=== PATIENT | female | born 1980 | race Caucasian/White ===

== ENCOUNTER 2020-07-31 15:53 | Outpatient (REF) | payer OTHER, SELFPAY ==
--- NOTE | 2020-07-31 14:20 | PAPFT_PTH ---
PATIENT: Kirsten Vivar LOC: [facility] U#:[id number] AGE/SX: 40/F ROOM: RE07/31/[address]: ZAINAB Noel : 1980 BED: DIS: 07/31/2020 SPEC #: [id number] RECD: 07/31/20 17:40 STATUS: YULIYA RERiver #: [id number] ANDER: 07/31/20 14:[address]: Ivone Mclean DEPT: [facility] Cytology RECD BY: Gail Chapin Tissues: 1 - CX/ENDOCX FOR PAP SMEARS Procedures: PAP THIN PREP/UVM Screening HPV DNA PROBE Comments: [id number]
== END 2020-07-31 15:54 | disposition home or self-care (01) ==
LOC: LBN 15:53
PROVIDERS: Visit Provider Nurse Practitioner Family
DX: Z12.4 Encounter for screening for malignant neoplasm of cervix (principal); Z11.51 Encounter for screening for human papillomavirus (HPV)
CPT/HCPCS: 88142; 87624

== ENCOUNTER 2020-08-14 02:28 | Outpatient (CLI) | payer OTHER, SELFPAY ==
--- NOTE | 2020-08-14 14:58 | DI.MAMMO_ITS ---
Exam(s) MAMMO SCREENING EXAM: MAMMO SCREENING CLINICAL HISTORY: screening TECHNIQUE: Mammograms were interpreted according to the usual protocol including computer analysis w [employer] CAD system, tomosynthesis and C-view imaging. COMPARISON: FINDINGS: The breasts are heterogeneously dense. No dominant mass or clumped microcalcification is identified in either breast. The current examination is a baseline examination IMPRESSION: No specific evidence of malignancy at this time. Routine screening examinations are suggested at ye edgar intervals due to the family history of breast carcinoma. BI-RADS Category 1 - Negative Breast Density - Category C - Heterogeneously dense
== END 2020-08-14 02:48 ==
PROVIDERS: Visit Provider Nurse Practitioner Family
DX: Z12.31 Encounter for screening mammogram for malignant neoplasm of breast (principal); Z80.3 Family history of malignant neoplasm of breast
CPT/HCPCS: 77063; 77067

== ENCOUNTER 2021-08-19 16:33 | Outpatient (REF) | payer OTHER, SELFPAY ==
[2021-08-20 15:04] LABS: COVID-19 RT-PCR UVMMC Result Negative (Negative)
== END 2021-08-19 16:34 | disposition home or self-care (01) ==
LOC: LBN 16:33
PROVIDERS: Visit Provider Nurse Practitioner Family
DX: Z20.822 Contact with and (suspected) exposure to COVID-19 (principal); J32.9 Chronic sinusitis, unspecified
CPT/HCPCS: U0003

== ENCOUNTER 2022-01-02 14:36 | Outpatient (REF) | payer OTHER, SELFPAY ==
[2022-01-02 19:33] LABS: ALT 21 U/L (14-59); AST 17 U/L (15-37); Albumin 3.9 g/dL (3.4-5.0); Alkaline Phosphatase 59 U/L (46-116); Anion Gap 8.1 mmol/L (3-11); BUN 13 mg/dL (7-18); Bilirubin, Total 0.4 mg/dL (0.2-1.0); CO2 28.9 mmol/L (21.0-32.0); CREATININE 0.7 mg/dL (0.55-1.02); Calcium 9.6 mg/dL (8.5-10.1); Calculated LDL 139 mg/dL (<100); Chloride 101 mmol/L (98-107); Cholesterol 215 mg/dL (<200); Estimated GFR 110.67 (mL/min/1.73m2); Glucose 90 mg/dL (74-106); HDL Cholesterol 68 mg/dL (40-60); Potassium 4.4 mmol/L (3.5-5.1); Sodium 138 mmol/L (136-145); Total Protein 7.7 g/dL (6.4-8.2); Triglyceride 44 mg/dL (<150)
== END 2022-01-02 14:37 | disposition home or self-care (01) ==
LOC: LBN 14:36
PROVIDERS: Visit Provider Nurse Practitioner Family
DX: Z00.00 Encounter for general adult medical examination without abnormal findings (principal); Z13.220 Encounter for screening for lipoid disorders
CPT/HCPCS: 80053; 80061

== ENCOUNTER → 2022-01-20 01:45 | Outpatient (CLI) | payer OTHER, SELFPAY ==
--- NOTE | 2022-01-20 09:51 | DI.MAMMO_ITS ---
Exam(s) MAMMO SCREENING EXAM: MAMMO SCREENING CLINICAL HISTORY: screening,Z12.39 TECHNIQUE: Mammograms were interpreted according to the usual protocol including computer analysis w [employer] CAD system, tomosynthesis and C-view imaging. COMPARISON: FINDINGS: The breasts are heterogeneously dense. No dominant mass or clumped microcalcification is identified in either breast. The current examination is compared with previous examination of August 2020 and ther e has been no gross interval change in appearance in comparison with the prior study. IMPRESSION: No specific evidence of malignancy at this time. Routine screening examinations are suggested at yea rly intervals due to the family history of breast carcinoma. BI-RADS Category 1 - Negative Breast Density - Category C - Heterogeneously dense
== END ==
PROVIDERS: Visit Provider Nurse Practitioner Family
DX: Z12.31 Encounter for screening mammogram for malignant neoplasm of breast (principal); R92.8 Other abnormal and inconclusive findings on diagnostic imaging of breast
CPT/HCPCS: 77063; 77067

== ENCOUNTER 2023-01-03 11:44 | Outpatient (REF) | payer OTHER, SELFPAY ==
--- NOTE | 2023-01-03 10:00 | SKI_PTH ---
PATIENT: Kirsten Vivar LOC: [facility] U#:[id number] AGE/SX: 42/F ROOM: RE01/03/[address]: Baldev Royal DNP : 1980 BED: DIS: 01/03/2023 SPEC #: [id number] RECD: 01/03/23 13:05 STATUS: YULIYA FAIR #: [id number] ANDER: 01/03/23 10:[address]: Baldev Grimes DEPT: Surgical Specimen RECD BY: Gail Chapin Tissues: 1 - SKIN BIOPSY(SHAVE/PUNCH) 2 - SKIN BIOPSY(SHAVE/PUNCH) 3 - SKIN BIOPSY(SHAVE/PUNCH) 4 - SKIN BIOPSY(SHAVE/PUNCH) Procedures: SKIN LEVEL 4 Comments: [id number]
== END 2023-01-03 11:45 | disposition home or self-care (01) ==
LOC: LBN 11:44
PROVIDERS: PCP Nurse Practitioner Family; Visit Provider Nurse Practitioner Family
DX: M75.91 Shoulder lesion, unspecified, right shoulder (principal)
CPT/HCPCS: 88305

== ENCOUNTER → 2023-01-06 03:14 | Outpatient (CLI) | payer OTHER, SELFPAY ==
--- NOTE | 2023-01-06 07:15 | DI.RAD_ITS ---
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 TECHNIQUE: 2D digital imaging was performed. COMPARISON: No exams were available for comparison FINDINGS: Five views. Evidence of fracture or dislocation or abnormal soft tissue calcifications. Subacromial space is not diminished. No degenerative changes evident in the glenohumeral and AC joints. No os acromiale. C oracoid process is intact. Clavicle intact. IMPRESSION: No significant osseous findings in the right shoulder. DATA REPOSITORY: RADIATION DOSE DELIVERED:
== END ==
PROVIDERS: PCP Nurse Practitioner Family; Visit Provider Nurse Practitioner Family
DX: M25.511 Pain in right shoulder (principal)
CPT/HCPCS: 73030

== ENCOUNTER → 2023-01-24 03:38 | Outpatient (CLI) | payer OTHER, SELFPAY ==
--- NOTE | 2023-01-24 09:15 | DI.MAMMO_ITS ---
Exam(s) MAMMO SCREENING EXAM: MAMMO SCREENING CLINICAL HISTORY: screening TECHNIQUE: Bilateral full field digital CC and MLO mammographic images were obtained with 3D tomosyn thesis and utilizing computer aided detection (CAD). COMPARISON: Available for comparison. FINDINGS: Masses/Architectural Distortion: There is increase in size of a nodule in the medial left breast on t he CC view which now measures 6 mm. It lies 7 cm from the nipple. No areas of architectural distort ion are seen. Microcalcifications: No suspicious pleomorphic-type are seen. Skin Thickening/Nipple Retraction: None. IMPRESSION: 1. Interval increase in size of left breast nodule. 2. Further evaluation with a spot compression view and a limited right breast ultrasound are requeste d. BI-RADS Category 0 - Assessment Incomplete: Need additional imaging evaluation Breast Density - Category C - Heterogeneously dense Breast density category C or D implies that the patient has dense breast tissue. Dense breast tissue is very common and is not abnormal but dense breast tissue can make it harder to find cancer on a ma mmogram. Also, dense breast tissue may increase their breast cancer risk. This information about the result of the mammogram report was provided to the patient to raise their awareness. Use this report when you speak with the patient about their risks for breast cancer, which includes their family hist ory. At that time, you may recommend for more screening tests (Ultrasound or MRI) as they might be us eful based on their risk. A negative radiographic report should not delay biopsy if a dominant or clinically suspicious mass is present. Up to ten percent of cancers are not identified on mammography. A negative report may reinforce clinical impression. Adenosis and dense breasts may obscure an underlying neoplasm. False positive reports average 6 to 10%. Patient will receive a letter notifying them of these results.
== END ==
PROVIDERS: PCP Nurse Practitioner Family; Visit Provider Nurse Practitioner Women's Health
DX: Z12.31 Encounter for screening mammogram for malignant neoplasm of breast (principal)
CPT/HCPCS: 77063; 77067

== ENCOUNTER → 2023-02-03 02:51 | Outpatient (CLI) | payer OTHER, SELFPAY ==
--- NOTE | 2023-02-03 09:22 | DI.MAMMO_ITS ---
Exam(s) MG MAMMO SCREEN CALL BACK UNI US BREAST RT LIMITED EXAM: MG MAMMO SCREEN CALL BACK UNI CLINICAL HISTORY: F/U MAMMO, R92.8,INTERVAL INCREASE SIZE RT BREAST NODULE. TECHNIQUE: Craniocaudal and mediolateral oblique spot compression digital Mammography views of the b reast with Tomosynthesis and breast ultrasound. COMPARISON: MG MG MAMMO SCREENING from 08/14/2020 MG MG MAMMO SCREENING from 01/20/2022 MG MG MAMMO SCREENING from 01/24/2023 US US BREAST RT LIMITED from 02/03/2023 FINDINGS: Mammography/Tomosynthesis: Masses/Architectural Distortion: Circumscribed nodule medial right breast measuring 3 x 4 millimeters . On the screening exam there was some overlap with an adjacent vessel making it appear larger. Microcalcifictions: No suspicious pleomorphic-type are seen. Skin Thickening/Nipple Retraction: None. Right breast US: Echotexture: Normal appearance of the glandular tissue. Shadowing: No suspicious foci. Cyst: 3 millimeter cyst 4 o'clock position of the medial breast. Solid lesions: None seen. Ductal dilation: None. IMPRESSION: 1. No evidence of malignancy is noted. 2. Unless there is more urgent need, follow-up screening mammography is recommended, as per [place] [employer] guidelines. 3. The findings were discussed with the patient on the date of the examination. BI-RADS Category 2 - Benign Findings Breast Density - Category C - Heterogeneously dense A mammogram that demonstrates density of C or D indicates the patient's breast tissue is dense. Dense breast tissue is very common and is not abnormal, but dense breast tissue can make it harder to find cancer on a mammogram. Also, dense breast tissue may increase their breast cancer risk. This informa tion about the result of the mammogram report was provided to the patient to raise their awareness. U se this report when you speak with the patient about their risks for breast cancer, which includes th eir family history. At that time, you may recommend for more screening tests (Ultrasound or MRI) as t hey might be useful based on their risk. A negative radiographic report should not delay biopsy if a dominant or clinically suspicious mass is present. Up to ten percent of cancers are not identified on mammography. A negative report may reinforce clinical impression. Adenosis and dense breasts may obscure an underlying neoplasm. False positive reports average 6 to 10%. Patient will receive a letter notifying them of these results.
== END ==
PROVIDERS: PCP Nurse Practitioner Family; Visit Provider Nurse Practitioner Women's Health
DX: Z12.31 Encounter for screening mammogram for malignant neoplasm of breast (principal); R92.8 Other abnormal and inconclusive findings on diagnostic imaging of breast
CPT/HCPCS: 76642; 77063; 77067

== ENCOUNTER 2023-09-19 11:45 | Outpatient (REF) | payer OTHER, SELFPAY ==
--- NOTE | 2023-09-19 09:30 | PAPFT_PTH ---
PATIENT: Kirsten Vivar LOC: [facility] U#:[id number] AGE/SX: 43/F ROOM: RE09/19/[address]: Rae August NP : 1980 BED: DIS: 09/19/2023 SPEC #: [id number] RECD: 09/19/23 13:14 STATUS: YULIYA RERiver #: [id number] ANDER: 09/19/23 09:[address]: Mariangel LEBLANC,Rae DEPT: [facility] Cytology RECD BY: Gail Chapin ENTERED: 09/19/23 13:14 SP TYPE: PAPFT OTHR DR: Baldev Royal DNP Tissues: 1 - CX/ENDOCX FOR PAP SMEARS Procedures: PAP THIN PREP/UVM Screening HPV DNA PROBE Comments: [id number]
== END 2023-09-19 11:46 | disposition home or self-care (01) ==
LOC: LBN 11:45
PROVIDERS: PCP Nurse Practitioner Family; Visit Provider Nurse Practitioner Women's Health
DX: N76.0 Acute vaginitis (principal); Z12.4 Encounter for screening for malignant neoplasm of cervix; Z30.41 Encounter for surveillance of contraceptive pills; N81.11 Cystocele, midline; B37.9 Candidiasis, unspecified; B96.89 Other specified bacterial agents as the cause of diseases classified elsewhere
CPT/HCPCS: 88142; 87480; 87510; 87624; 87660

== ENCOUNTER 2024-02-06 01:24 | Outpatient (CLI) | payer OTHER, SELFPAY ==
--- NOTE | 2024-02-06 09:15 | DI.MAMMO_ITS ---
Exam(s) MAMMO SCREENING EXAM: MAMMO SCREENING CLINICAL HISTORY: screening TECHNIQUE: Mammograms were interpreted according to the usual protocol including computer analysis w [employer] CAD system, tomosynthesis and C-view imaging. COMPARISON: 2020 through 2022 FINDINGS: The breasts are composed of heterogeneously dense fibroglandular densities, Breast Density category C . No suspicious masses or suspicious microcalcifications are seen. No skin thickening or abnormal axillary lymph nodes are seen. There has been no significant change from prior exams. IMPRESSION: BI-RADS Category 1, Negative mammogram. Yearly screening mammography is recommended. Breast Density Category C, heterogeneously Dense. The mammogram demonstrates the patient's breast tissue is dense. Dense breast tissue is very common a nd is not abnormal but dense breast tissue can make it harder to find cancer on a mammogram. Also, de nse breast tissue may increase breast cancer risk. This information about the result of the mammogram report was provided to the patient to raise their awareness. Use this report when you speak with the patient about their risks for breast cancer, which includes their family history. At that time, you may recommend additional screening tests (Ultrasound or MRI) as they might be useful based on their r isk. A negative radiographic report should not delay biopsy if a dominant or clinically suspicious mass is present. Up to ten percent of cancers are not identified on mammography. A negative report may reinforce clinical impression. Adenosis and dense breasts may obscure an underlying neoplasm. False positive reports average 6 to 10%.
== END 2024-02-06 01:44 ==
LOC: DI 01:24
PROVIDERS: PCP Nurse Practitioner Family; Visit Provider Nurse Practitioner Women's Health
DX: Z12.31 Encounter for screening mammogram for malignant neoplasm of breast (principal)
CPT/HCPCS: 77063; 77067

== ENCOUNTER 2024-03-26 06:09 | Day surgery (SDC) | payer OTHER, SELFPAY ==
--- NOTE | 2024-03-25 12:15 | W.PREOPHP ---
Assessment and Plan Assessment and plan (1) Encounter for screening colonoscopy: Status: Acute Assessment and plan: We reviewed the plan for her [facility] screening colonscpoy today. Kirsten had the chance to ask any other questions. We can proceed with colonoscopy as planned. History of Present Illness History of Present Illness Chief Complaint: screening colonoscopy Narrative: 44-year-old woman has no symptoms of concern. She has never had a screening colonoscopy before. There is no family history of colon cancer. She has never had intra-abdominal surgery. She does thing that her parents might have had adenomatous polyps. Since her last office visit, there have been no significant changes to the the history [facility], [facility] All Active Problems Encounter for screening colonoscopy (Acute) Prolapse of female pelvic organs (Acute) Right shoulder pain (Acute) Skin lesions, generalized (Acute) Varicose vein of leg (Acute) Annual physical exam (Acute) Screening cholesterol level (Acute) Contraception (Acute) Medical History Hypertension Family History Father Heart disease Hypertension Brother Hypertension Mother Hypertension Depression Sister Thyroid disorder Brother High cholesterol Son No problems noted. Daughter No problems noted. 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 Pets and animals: Yes Pets and animals: dog(s) Sexually active: Yes Do you think of yourself as: straight/heterosexual Current gender identity: female What is your relationship status?: How often do you talk on the phone with friends or family?: twice per week How often do you get together with friends or relatives?: once per week How often do you attend yazdanism or buddhist services?: 1-3 times per year Do you belong to any clubs or organized social groups?: no Panel score (0-1 are the most socially isolated patients): 2 What type of physical activity do you participate in: walking Duration: 15-30 minutes/day Frequency: 3-4 times per week Tresa/Taoist: Sikhism Special tresa needs: No Seatbelt use: always Helmet use: Yes Helmet use: always Drive intox or ride w/intox passenger coach driver: No Do you feel safe at home: Yes Do you feel safe in your relationship?: Yes Female Reproductive History Menstrual control method: pills (POP) History History Para 2 Hx # Term Pregnancies Multiple births Hx # Pregnancies Ectopic pregnancies AB induced Hx Number of Living Children AB spontaneous Meds Allergies and Home Medications Allergies Allergy/AdvReac Type Severity Reaction Status Date / Time No Known Allergies Allergy Verified 03/26/24 06:34 Home Medications ?Medication ?Instructions ?Recorded ?Confirmed ?Type wpghzksv-tgt-mgdy-FA-Ca carb-vit K 1 tab PO DAILY 04/28/20 03/26/24 History 18 mg iron-400 mcg-500 mg tablet (One-A-Day Womens Formula) norethindrone (contraceptive) 0.35 0.35 mg PO DAILY #84 tabs 06/20/23 03/26/24 Rx mg tablet albuterol sulfate 90 mcg/actuation 2 puff inhalation Q6H PRN 02/28/24 03/26/24 Rx aerosol inhaler shortness of breath or wheezing #6.7 grams Exam Const General: cooperative, healthy appearing and not in acute distress Neck Neck: normal visual inspection, no lymphadenopathy and supple Resp Effort & Inspection: normal respiratory effort Auscultation: clear to auscultation bilaterally Cardio Jugular venous pressure: no JVD Rate: regular rate Rhythm: regular rhythm Heart Sounds: S1 normal and S2 normal GI Inspection: normal to inspection Palpation: soft, no guarding, no hernias and nontender Percussion: normal to percussion Auscultation: normal bowel sounds Neuro General: patient alert, patient awake and patient oriented x3 Psych Appearance: grossly normal
--- NOTE | 2024-03-25 12:17 | W.PM.DSUDISC ---
Date of service: 03/26/24 Discharge Plan Disposition Patient Disposition: Home Condition: Good Discharge Details Reason For Visit: screening colonoscopy Attending Provider: Mookie Pitt Primary Care Provider: Baldev Grimes Home Meds and New Rx's Prescriptions: Continued One-A-Day Womens Formula 18 mg iron-400 mcg-500 mg tablet 1 tab PO DAILY Rx Instructions: give with meal/snack albuterol sulfate 90 mcg/actuation HFA aerosol inhaler 2 puff inhalation Q6H PRN (Reason: shortness of breath or wheezing) Qty: 6.7 0RF norethindrone (contraceptive) 0.35 mg tablet 0.35 mg PO DAILY Qty: 84 3RF Rx Instructions: start day 1 of menstrual cycle Discontinued bisacodyl [Dulcolax (bisacodyl)] 5 mg tablet,delayed release (DR/EC) 5 mg PO ONCE Qty: 4 0RF Rx Instructions: Take per colonoscopy instructions provided by ordering providers office polyethylene glycol 3350 17 gram/dose powder 17 g PO ONCE Qty: 238 0RF Rx Instructions: Take per colonoscopy instructions provided by ordering providers office Discharge Instructions Instructions: Colon polyps Additional Instructions: Antoinette, was pleasure meeting you today, and I hope you are comfortable throughout the procedure. I did find and removed, what I think might be a small polyp today. This is extremely small, and certainly nothing to be worried about. I will send this off to the pathologist for their review. If it is a true polyp, we will use that information to guide the timing of your next colonoscopy. Those results usually take a week or 2, but as soon as I have that information, my office will be in touch. If you need anything in the meantime, please do not hesitate to ask. 1. If tolerated, consume a soft, low fiber diet for 1-2 days. 2. Do not drive, drink alcohol, operate machinery, make critical decisions, or do activities that require coordination or balance for 24 hours. 3. Because air was put into your colon during the procedure, expelling air from your rectum (passing gas or farting) is normal. 4. You may not have a bowel movement for 1-3 days because of the colonoscopy prep. This is normal. 5. Go directly to the emergency room if you notice any of the following: Develop chills (warm to touch), or if you have a thermometer and your temperature is above 101 Difficulty breathing or difficultly swallowing Persistent vomiting Severe abdominal pain, other than gas cramps Severe chest pain Black, tarry stools Any bleeding ? exceeding one tablespoon 6. Call your physician if the site where your intravenous was started becomes red, swollen, painful, and warm to touch. 7. Your physician has reviewed your pre-procedure medications. Please continue to take those medications as previously ordered. You will be given specific information/education regarding any changes to your medications before leaving. Activity:: Activity as Tolerated Diet:: As Tolerated Discharge Orders Discharge Orders: Discharge Order (Routine); Ordered 03/25/24 Ordered By: Mookie Pitt DS: Diagnosis Discharge Diagnosis (1) Encounter for screening colonoscopy: Status: Acute Asessment and Plan: Follow-up on polypectomy results
--- NOTE | 2024-03-25 12:18 | COLE_ITS ---
Date of service: 03/26/24 Time of Service: 07:55 Colonoscopy Report Date of procedure: 03/26/24 Pre-op diagnosis general: screening colonoscopy Post-op diagnosis procedure note: other (Colon polyp) Procedure: colonoscopy with polypectomy Surgeon: Mookie Pitt Anesthesia Type: General:No Airway Estimated blood loss (mL): 5 Pathology: other (0.25 cm flat polyp at 25 cm) Complications: None Disposition: same day Indications: Kirsten is a 44 year old woman who needs her first screening colonoscopy Prep: Miralax/Dulcolax Procedure Start Time: 07:36 Procedure End Time: 07:51 Retraction Time: 7 Findings: 0.25 cm flat polyp at 25 cm Procedure Description: After the induction of anesthesia, and with the patient in left lateral decubitus position, I began by performing an external anorectal exam.? Perineum and skin were normal, as was the anal verge.? There was no evidence of external hemorrhoids.? Next, I performed a digital rectal exam.? I did not appreciate any abnormal findings.? Next, I advanced a colonoscope into the rectal vault.? I performed retroflexion.? This appeared normal.? Using insufflation, I then advanced the colonoscope beyond the rectal folds and into the sigmoid colon before advancing towards the cecum.? The quality of the prep was outstanding.? The scope was noted to be in the cecum by identification of the ileocecal valve and appendiceal orifice.? I then began withdrawing the colonoscope using re peated irrigation as necessary for full evaluation of the colonic mucosa. Around 25 cm from the anal verge was a very small area of polypoid tissue. It was less than 0.25 cm in size. This was flat, and I removed it with cold forceps with minimal bleeding. ?Once the scope was withdrawn to the level of the rectum, great care was taken to examine portions of the rectal folds.? Finally, the scope was withdrawn and the patient was brought to the same-day surgery recovery unit as the anesthetic wore off. ?The findings and instructions were shared with the patient prior to discharge. [place] Bowel Prep [place] Bowel Prep Right Colon: 3 Left Colon: 3 Transverse Colon: 3 Total Score: 9
--- NOTE | 2024-03-25 17:08 | ANES.PREOP_ITS ---
General Info Date of Service Date Performed: 03/26/24 Height: 5 ft 8 in Weight: 131.542 kg Body Mass Index (BMI): 44.1 Surgical Procedure: Operation Date: 03/26/24 07:35 Proposed Procedure Side Surgeon p Colonoscopy Mookie Pitt MD Meds Allergies and Home Medications Allergies Allergy/AdvReac Type Severity Reaction Status Date / Time No Known Allergies Allergy Verified 03/26/24 06:34 Home Medication ?Medication ?Instructions ?Recorded msmyxsot-jwk-iadu-FA-Ca carb-vit K 1 tab PO DAILY 04/28/20 18 mg iron-400 mcg-500 mg tablet (One-A-Day Womens Formula) norethindrone (contraceptive) 0.35 0.35 mg PO DAILY #84 tabs 06/20/23 mg tablet albuterol sulfate 90 mcg/actuation 2 puff inhalation Q6H PRN 02/28/24 aerosol inhaler shortness of breath or wheezing #6.7 grams Current Visit Medications: Current Medications Generic Name Dose Route Start Last Admin Trade Name Alfonsoq PRN Reason Stop Dose Admin Ringer's Solution 1,000 mls @ 80 mls/hr 03/26/24 06:00 IV 03/26/24 23:59 INFUSION WAGNER IV Miscellaneous Supplies 1 each 03/26/24 06:00 Iv Access IV 03/26/24 23:59 DIRECTED WAGNER Ondansetron HCl 4 mg 03/25/24 12:20 Ondansetron 4 Mg/2 Ml Vial IVP 04/24/24 12:19 Q4H PRN PRN Nausea / Vomiting Sodium Chloride 0 ml 03/26/24 06:00 Normal Saline Flush 10 Ml Syr IV 03/26/24 23:59 PRN PRN Sodium Chloride 0 ml 03/26/24 06:00 Normal Saline 10 Ml Vial IJ 03/26/24 23:59 DIRECTED PRN Sterile Water 0 ml 03/26/24 06:00 Water,Injection,Sterile 10 Ml Vial IJ 03/26/24 23:59 DIRECTED PRN PFSH Active Problems Active Problems: Problem Status Onset Code Encounter for screening colonoscopy Acute Z12.11 Prolapse of female pelvic organs Acute N81.9 Right shoulder pain Acute M25.511 Skin lesions, generalized Acute L98.9 Varicose vein of leg Acute I83.90 Annual physical exam Acute Z00.00 Screening cholesterol level Acute Z13.220 Contraception Acute Z30.9 Medical History Medical History Hypertension Tobacco Smoking/Tobacco Use Status: Never Passive smoking exposure: No Second hand exposure: No Alcohol Alcohol Intake: never Substance Use Substance use: Never Substance use type: does not use Prental History History Para 2 Hx # Term Pregnancies Multiple births Hx # Pregnancies Ectopic pregnancies AB induced Hx Number of Living Children AB spontaneous Vital Signs and Lab Results Vital Signs Most Recent Vital Signs in EMR: Temp Pulse Resp BP Pulse Ox 36.6 C 99 H 16 139/74 100 03/26/24 06:35 03/26/24 06:35 03/26/24 06:35 03/26/24 06:35 03/26/24 06:35 Lab Results Blood Type / Crossmatch: No Data to Display Complete Blood Count: No Data to Display Complete Metabolic Panel: No Data to Display Liver Function Panel: No Data to Display Coagulation Panel: No Data to Display Cardiac Panel: No Data to Display Arterial Blood Gas: No Data to Display Venous Blood Gas: No Data to Display Pancreas Panel: No Data to Display Thyroid Panel: No Data to Display Infectious Disease: No Data to Display Blood Cultures: No Data to Display Toxicology Panel: No Data to Display Panel: No Data to Display Anesthesia Assessment and Plan Anesthesia History Personal History: No History of General Anesthesia Family History: No Family History of Anesthesia Complications Exercise Tolerance Exercise Tolerance: Metabolic Equivalents>4 Cardiac & Pulmonary Exam Cardiac Exam: Normal S1/S2 Heart Sounds Pulmonary Exam: Clear Bilateral Breath Sounds Implantable Cardiac Device Does patient have a Pacemaker or an ICD?: No Airway Exam Known Difficult Airway: No Mallampati Class: 3 Mouth Opening: Narrow (< 3cm) Thyromental Distance: Less than 3 cm Neck Range of Motion: Full ROM Neck Circumference: Normal Teeth Condition: Normal Dentition ASA Classification ASA Score: ASA 3 Emergency Case?: No NPO Status NPO Status: NPO Clears >2 hours, Solids >8 hours Status Status: Negative HCG Anesthesia Plan Resuscitation Status: Full Code Anesthesia Technique: General Anesthesia Airway Planned: Natural Airway Monitors Used: Standard Monitors Preoperative Comments:: 44 yo female for colo. Sig PMHx: HTN (no meds, on list since preg), RAD (albuterol for URI a month ago ), never smoker, denies major.
[2024-03-26 06:35] VITALS: BP 139/74; PULSE 99; RESP 16; TEMP 36.6; O2SAT 100
[2024-03-26] MEDS: Normal Saline Flush 10 ML SYR IV (06:42)
[2024-03-26 07:00] VITALS: BMI 44.1
--- NOTE | 2024-03-26 07:50 | BOWEL_PTH ---
PATIENT: Kirsten Vivar LOC: [facility] U#:[id number] AGE/SX: 44/F ROOM: RE03/26/[address]: Mookie Pitt MD : 1980 BED: DIS: 03/26/2024 SPEC #: [id number] RECD: 03/26/24 12:40 STATUS: YULIYA REQ #: [id number] ANDER: 03/26/24 07:[address]: Mookie Pitt DEPT: Surgical Specimen RECD BY: Gail Chapin ENTERED: 03/26/24 12:42 SP TYPE: Bowel OTHR DR: Baldev Royal DNP Tissues: 1 - BIOPSY BOWEL Procedures: GROSS AND MICRO LEVEL 4 Comments: [id number]
[2024-03-26 07:55] VITALS: BP 116/76; PULSE 83; RESP 16; TEMP 36.6; O2SAT 100
--- NOTE | 2024-03-26 08:02 | W.ANESPOSTOP ---
Postoperative Evaluation Date, Time and Location Date Performed: 03/26/24 Time Performed: 08:02 Patient Location: Day Surgery Unit Vital Signs Most Recent Imported Vital Signs: Most Recent Vital Signs Temp Pulse Resp BP Pulse Ox 36.6 C 83 16 116/76 100 03/26/24 07:55 03/26/24 07:55 03/26/24 07:55 03/26/24 07:55 03/26/24 07:55 Pain Score Most Recent Pain Score: Most Recent Pain Score Pain Level 0 03/26/24 07:55 Assessment Mental Status: Awake (Alert & Oriented to Patient Baseline) Airway and Respiratory Function: Patent airway with normal (patient baseline) respiratory exam Cardiovascular Function: Hemodynamically Stable Hydration Status: Adequately Hydrated Nausea & Vomiting: No Nausea or Vomiting Pain: Pt. Denies Any Pain Peripheral Nerve Block: Patient did not receive a nerve block
[2024-03-26 08:26] VITALS: BP 121/75; PULSE 80; RESP 16; TEMP 36.3; O2SAT 100
== END 2024-03-26 09:09 | disposition home or self-care (01) ==
LOC: SUR 06:09
PROVIDERS: PCP Nurse Practitioner Family; Visit Provider Surgery
PROC: 0DJD8ZZ Inspection of Lower Intestinal Tract, Via Natural or Artificial Opening Endoscopic (ICD-10-PCS; CPT 45378; principal; 2024-03-26 07:30)
DX: Z12.11 Encounter for screening for malignant neoplasm of colon (principal); K63.5 Polyp of colon
CPT/HCPCS: 45380; 81025; 88305; J2704

== ENCOUNTER 2025-01-07 09:35 | Outpatient (CLI) | payer BC, SELFPAY ==
[2025-01-07 15:18] LABS: ALT 16 U/L (14-59); AST 19 U/L (15-37); Albumin 3.9 g/dL (3.4-5.0); Alkaline Phosphatase 64 U/L (46-116); Anion Gap 9.8 mmol/L (3-11); BUN 11 mg/dL (7-18); Bilirubin, Total 0.6 mg/dL (0.2-1.0); CO2 27.2 mmol/L (21.0-32.0); Calcium 8.8 mg/dL (8.5-10.1); Calculated LDL 150 mg/dL (<100); Chloride 102 mmol/L (98-107); Cholesterol 223 mg/dL (<200); Estimated GFR 91.97 (mL/min/1.73m2); Glucose 86 mg/dL (74-106); HDL Cholesterol 66 mg/dL (>or=50); Potassium 3.8 mmol/L (3.5-5.1); Sodium 139 mmol/L (136-145); Total Protein 7.9 g/dL (6.4-8.2); Triglyceride 37 mg/dL (<150)
== END 2025-01-07 09:36 | disposition home or self-care (01) ==
LOC: LOS 09:35
PROVIDERS: PCP Nurse Practitioner Family; Referring Provider Nurse Practitioner Family; Visit Provider Nurse Practitioner Family
DX: Z13.220 Encounter for screening for lipoid disorders (principal)
CPT/HCPCS: 36415; 80053; 80061

== ENCOUNTER → 2025-02-08 03:27 | Outpatient (CLI) | payer BC, SELFPAY ==
--- NOTE | 2025-02-08 11:45 | DI.MAMMO_ITS ---
Exam(s) MAMMO SCREENING EXAM: MAMMO SCREENING CLINICAL HISTORY: screening. TECHNIQUE: Bilateral full field digital CC and MLO mammographic images were obtained with 3D tomosynthesis and utilizing computer aided detection (CAD). COMPARISON: Prior mammograms were reviewed. Prior ultrasound January 2023 was reviewed FINDINGS: There has been no significant change in the appearance and distribution of the fibroglandular tissue. There are no CAD designations. No significant left breast findings. In the right breast on the CC view there is a medially located nodule located anteriorly, proximally 7 cm from the nipple. This is unchanged from prior recent mammograms although has slightly increased in size from 2020. Was shown to be a benign microcyst on ultrasound performed January 2023. There are no malignant-appearing microcalcification groups is region or elsewhere in either breast. There is no significant architectural distortion nor skin thickening-retraction. IMPRESSION: Stable benign-appearing findings. No radiographic evidence of malignancy. BI-RADS Category 2 - Benign Findings Breast Density - Category C - The breast are heterogeneously dense, which may obscure small masses. Breast density Category C or D implies that the patient has dense breast tissue. Dense breast tissue can make it harder to find cancer on a mammogram. Dense breast tissue is also associated with an increased risk of breast cancer. This information about the result of the mammogram report was provided to the patient to raise their awareness. Use this report when you speak with the patient about their risks for breast cancer, which includes their family history. At that time, you may recommend additional screening tests (Ultrasound or MRI) as these tests may add significant information. A negative radiographic report should not delay biopsy if a dominant or clinically suspicious mass is present. Up to ten percent of cancers are not identified on mammography. A negative report may reinforce clinical impression. Adenosis and dense breasts may obscure an underlying neoplasm. False positive reports average 6 to 10%. Patient will receive a letter notifying them of these results.
== END ==
PROVIDERS: PCP Nurse Practitioner Family; Visit Provider Nurse Practitioner Women's Health
DX: Z12.31 Encounter for screening mammogram for malignant neoplasm of breast (principal)
CPT/HCPCS: 77063; 77067